=== PATIENT | male | born 1980 | race Caucasian/White ===

== ENCOUNTER 2020-05-02 09:09 | Emergency (ER) | payer OTHER ==
[~2020-05-02] VITALS: Ht 182.9 cm; Wt 114.9 kg
[2020-05-02] MEDS ORDERED: ACETAMINOPHEN 500 MG TAB PO ONE (10:15)
[2020-05-02] MEDS ORDERED: IBUPROFEN 600MG TAB PO ONE (10:15)
[2020-05-02] MEDS ORDERED: CYCLOBENZAPRINE 5MG TABLET PO ONE (10:15)
[2020-05-02] MEDS ORDERED: IBUP-1022 PO (11:23)
[2020-05-02] MEDS ORDERED: CYCL5TAB PO (11:23)
[2020-05-02 11:41] VITALS: BP 120/72
--- NOTE | 2020-05-30 09:14 | REP ---
THORACIC SPINE SERIES: CLINICAL: Back pain. TECHNIQUE: AP, lateral and swimmer's views. FINDINGS: Alignment and kyphosis maintained. No acute fracture/compression injury or subluxation. Paravertebral soft tissues are normal. IMPRESSION: Normal thoracic spine radiographs. MTDD
--- NOTE | 2020-05-30 09:15 | REP ---
LUMBOSACRAL SPINE SERIES: CLINICAL: Lumbar pain. TECHNIQUE: AP, lateral, bilateral oblique and coned down views of the lumbosacral spine. FINDINGS: Alignment and lordosis maintained. Vertebral bodies intact. No acute fracture/compression injury or subluxation. No spondylolysis or spondylolisthesis. IMPRESSION: Normal lumbosacral spine radiographs. MTDD
== END 2020-05-02 11:44 | disposition home or self-care (01) ==
LOC: M ED 09:09
DX: M54.5 Low back pain (principal); G89.29 Other chronic pain; M62.830 Muscle spasm of back; F17.200 Nicotine dependence, unspecified, uncomplicated; Z88.5 Allergy status to narcotic agent

== ENCOUNTER 2021-08-19 00:34 | Emergency (ER) | payer OTHER, SELFPAY ==
[~2021-08-19] VITALS: Ht 182.9 cm; Wt 104.5 kg
[~2021-08-19 00:34] MED LIST: CYCL5TAB PO; IBUP-1022 PO
[2021-08-19] MEDS ORDERED: TETRACAINE 0.5% OPHTH SOLN 4ML OS ONE (04:00)
[2021-08-19] MEDS ORDERED: FLUORESCEIN OPHTH 1 MG STRIP OS ONE (04:00)
[2021-08-19] MEDS ORDERED: ERYTHROMYCIN OPHTH OINT OS ONE (06:15)
[2021-08-19] MEDS ORDERED: CELE50CA PO (06:30)
[2021-08-19] MEDS ORDERED: VENL75CA47 PO (06:30)
[2021-08-19] MEDS ORDERED: ERYT5OIN25 OS (06:44)
[2021-08-19 06:55] VITALS: BP 128/72
== END 2021-08-19 07:21 | disposition home or self-care (01) ==
LOC: M ED 00:34
DX: T15.02XA Foreign body in cornea, left eye, initial encounter (principal); Y92.9 Unspecified place or not applicable; Y93.9 Activity, unspecified; Z88.5 Allergy status to narcotic agent

== ENCOUNTER → 2022-04-12 | Outpatient (CLI) | payer OTHER ==
[~2022-04-12] MED LIST changes: +CELE50CA PO; +ERYT5OIN25 OS; +VENL75CA47 PO
== END ==
LOC: M SLEEP 20:00
PROVIDERS: ATTEND Nurse Practitioner Family
DX: G47.30 Sleep apnea, unspecified (principal)

== ENCOUNTER → 2023-05-08 | Outpatient (CLI) | payer OTHER | LOC: M SLEEP 20:00 | PROVIDERS: ATTEND Nurse Practitioner Family | DX: G47.33 Obstructive sleep apnea (adult) (pediatric) (principal) ==

== ENCOUNTER 2024-12-15 20:39 | Emergency (ER) | payer OTHER ==
[~2024-12-15] VITALS: Ht 162.6 cm; Wt 102.1 kg
[~2024-12-15 20:39] MED LIST changes: -CELE50CA PO; +CELE50CA17 PO; -CYCL5TAB PO; +CYCL5TAB4 PO
[2024-12-15 20:43] VITALS: BP 136/68; TEMP 96.6; O2SAT 99
== END 2024-12-15 21:16 | disposition left against medical advice (07) ==
LOC: M ED 20:39
DX: Z53.21 Procedure and treatment not carried out due to patient leaving prior to being seen by health care provider (principal)